=== PATIENT | male | born 1955 | race Caucasian/White ===

== ENCOUNTER 2020-12-31 22:32 | Emergency (ER) | payer MEDICARE, BC ==
--- NOTE | 2020-12-31 23:59 | EDM.PDOC ---
ED HPI GENERAL MEDICAL PROBLEM - General Chief Complaint: Back Pain or Injury Time Seen by Provider: 12/31/20 23:55 Source of Information: Reports: Patient History Limitations: Reports: No Limitations - History of Present Illness INITIAL COMMENTS - FREE TEXT/NARRATIVE: 65-year-old female who reports on 12/28/2020 he began to notice a sharp pain in his right was intermittent and mild initially and it seemed to be worse with movement and with palpation. He works as a tier truck driver on a farm and noted the pain when he would get in and out of the truck. And with certain bumps. Since 12/28/2020, the pain has progressively worsened with time. He has seen the chiropractor twice and seemed to get some relief with chiropractic manipulation it was short-lived. He states he had an adjustment and 8 AM today and the pain was improved until about noon and then the pain seems to have worsened through the day and the pain as a 10/10 level of pain now. Movement and with palpation. It seems to radiate up his back a little bit and to his right flank as well. He does have some nausea on the way in via private vehicle but no vomiting. He does report that he has had sweats associated with this pain and the pain does have a colicky component. In addition, he has had a subjective fever with chills at times. No abdominal pain. No weakness or dizziness. He reports he has been eating and drinking normally. There are no other associated signs or symptoms. There are no other modifying factors. Onset: Other (12/28/2020) Duration: Getting Worse Location: Reports: Back, Radiates to (Flank and right mid back) Quality: Reports: Sharp, Stabbing Improves with: Reports: Rest Worsens with: Reports: Other (Palpation), Movement Context: Reports: Other (As above) Associated Symptoms: Reports: No Other Symptoms (Except as above.) Treatments PLATE DRILLER: Reports: Acetaminophen, NSAIDS (Ibuprofen) Right Back Pain Score (Numeric/FACES): 10 - Related Data Allergies Allergy/AdvReac Type Severity Reaction Status Date / Time No Known Allergies Allergy Verified 12/31/20 22:51 Home Meds: Home Meds Aspirin [Halfprin] 81 mg PO DAILY 12/31/20 [History] Empagliflozin [Jardiance] 10 mg PO DAILY 12/31/20 [History] Exenatide Microspheres [Bydureon] 2 mg SUBCUT Q7D 12/31/20 [History] Acetaminophen/HYDROcodone [HYDROcodone-Acetaminophen 5-325 MG *] 1 - 2 tab PO Q6H PRN #12 each 01/01/21 [Rx] Sulfamethoxazole/Trimethoprim [Bactrim Ds Tablet] 1 tab PO BID 10 Days #20 tablet 01/01/21 [Rx] Past Medical History Endocrine/Metabolic History: Reports: Diabetes, Type II Dermatologic History: Reports: Venous Stasis Dermatitis - Infectious Disease History Infectious Disease History: Reports: Mumps - Past Surgical History HEENT Surgical History: Reports: Cataract Surgery (With bilateral implants) GI Surgical History: Reports: Appendectomy Social & Family History - Tobacco Use Tobacco Use Status *Q: Unknown Ever Used Tobacco (Nonsmoker) - Caffeine Use Caffeine Use: Reports: Coffee, Soda - Alcohol Use Alcohol Use History: No - Living Situation & Occupation Living situation: Reports: Occupation: Retired (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 Denies: Abdominal Pain, Vomiting : Reports: Flank Pain. Denies: Dysuria, Hematuria Musculoskeletal: Reports: Back Pain. Denies: Neck Pain, Shoulder Pain Skin: Denies: Diaphoresis, Rash Neurological: Denies: Dizziness, Headache Hematologic/Lymphatic: Denies: Easy Bleeding, Easy Bruising ED EXAM, GENERAL - Physical Exam Exam: See Below Exam Limited By: No Limitations General Appearance: Alert, Moderate Distress, Obese Eye Exam: Bilateral Eye: EOMI, Normal Inspection (Sclera are anicteric), PERRL Ears: Normal External Exam, Hearing Grossly Normal Ear Exam: Bilateral Ear: Auricle Normal Nose: Normal Inspection, Normal Mucosa, No Blood Throat/Mouth: Normal Voice, No Airway Compromise Head: Atraumatic, Normocephalic Neck: Normal Inspection, Supple, Non-Tender, Full Range of Motion Respiratory/Chest: No Respiratory Distress, Lungs Clear, Normal Breath Sounds, No Accessory Muscle Use, Chest Non-Tender Cardiovascular: Normal Peripheral Pulses, Regular Rate, Rhythm, No Murmur Peripheral Pulses: 2+: Radial (L), Radial (R) GI/Abdominal: Normal Bowel Sounds, Soft, Non-Tender, No Mass Back Exam: Normal Inspection, CVA Tenderness (R). No: CVA Tenderness (L) Extremities: Normal Inspection, Normal Range of Motion, Non-Tender, Normal Capillary Refill, Other (Support stockings on both feet, ankles and lower legs.) Neurological: Alert, Oriented, CN II-XII Intact, Normal Cognition, No Motor/Sensory Deficits Psychiatric: Normal Affect Skin Exam: Warm, Dry, Intact, Normal Color, No Rash Course - Vital Signs Last Recorded V/S: Last Vital Signs Temp 36.8 C 12/31/20 23:00 Pulse 75 01/01/21 02:59 Resp 18 01/01/21 02:59 BP 158/65 H 01/01/21 02:59 Pulse Ox 96 01/01/21 02:59 - Orders/Labs/Meds Orders: Active Orders 24 hr Category Date Time Status Abdomen Pelvis wo Cont [CT] Stat Exams 01/01/21 01:00 Taken CULTURE URINE [RM] Stat Lab 01/01/21 00:00 Received Sodium Chloride 0.9% [Saline Flush] Med 01/01/21 00:17 Active 10 ml FLUSH ASDIRECTED PRN Peripheral IV Insertion Adult [OM.PC] Routine Oth 01/01/21 00:17 Ordered Medication Orders Sodium Chloride (Sodium Chloride 0.9% 10 Ml Syringe) 10 ml FLUSH ASDIRECTED PRN PRN Reason: Keep Vein Open Last Admin: 01/01/21 00:32 Dose: 10 ml Documented by: KELLY Labs: Laboratory Tests 12/31/20 01/01/21 01/01/21 Range/Units 22:45 00:10 00:10 WBC 16.1 H (3.2-10.1) x10-3/uL RBC 4.93 (3.90-5.90) x10(6)uL Hgb 14.9 (12.9-17.7) g/dL Hct 46.0 (38.3-50.1) % MCV 93.3 (80.8-98.7) fL MCH 30.2 (27.0-33.3) pg MCHC 32.3 (28.7-35.3) g/dL RDW 14.6 (12.4-15.0) % Plt Count 214 (117-477) x10(3)uL MPV 8.3 (6.7-11.0) fL Add Manual Diff Yes Neutrophils % (Manual) 84 H (46-82) % Band Neutrophils % 2 (0-6) % Lymphocytes % (Manual) 5 L (13-37) % Monocytes % (Manual) 8 (4-12) % Basophils % (Manual) 1 (0-2) % Sodium 140 (135-145) mmol/L Potassium 3.8 (3.5-5.3) mmol/L Chloride 103 (100-110) mmol/L Carbon Dioxide 25 (21-32) mmol/L BUN 19 H (7-18) mg/dL Creatinine 1.1 (0.70-1.30) mg/dL Est Cr Clr Drug Dosing 69.13 mL/min Estimated GFR (MDRD) > 60 (>60) BUN/Creatinine Ratio 17.3 (9-20) Glucose 203 H (80-116) mg/dL Calcium 8.8 (8.6-10.2) mg/dL Magnesium 2.0 (1.8-2.5) mg/dL Total Bilirubin 0.8 (0.1-1.3) mg/dL AST 18 (5-25) IU/L ALT 27 (12-36) U/L Alkaline Phosphatase 75 (56-112) IU/L Total Protein 7.3 (6.0-8.0) g/dL Albumin 3.1 L (3.2-4.6) g/dL Globulin 4.2 g/dL Albumin/Globulin Ratio 0.7 Urine Color Yellow (YELLOW) Urine Appearance Cloudy (CLEAR) Urine pH 5.0 (5.0-6.5) Ur Specific Section 1.010 (1.010-1.025) Urine Protein Negative (NEGATIVE) mg/dL Urine Glucose (UA) >1000 H (NORMAL) mg/dL Urine Ketones 15 H (NEGATIVE) mg/dL Urine Occult Blood Moderate H (NEGATIVE) Urine Nitrite Negative (NEGATIVE) Urine Bilirubin Negative (NEGATIVE) Urine Urobilinogen Normal (NEGATIVE) mg/dL Ur Leukocyte Esterase Large H (NEGATIVE) Urine RBC 5-10 H (0-5) Urine WBC >100 H (0-5) Ur Squamous Epith Cells Few H (NS,R,O) Urine Bacteria Moderate H (NS) Meds: Medications Generic Name Dose Route Start Last Admin Trade Name Caprice PRN Reason Stop Dose Admin Sodium Chloride 10 ml 01/01/21 00:17 01/01/21 00:32 Sodium Chloride 0.9% 10 Ml Syringe FLUSH 10 ml ASDIRECTED PRN Administration Keep Vein Open Discontinued Medications Generic Name Dose Route Start Last Admin Trade Name Caprice PRN Reason Stop Dose Admin Ceftriaxone Sodium 2 gm 01/01/21 02:04 01/01/21 02:10 Ceftriaxone 2 Gm Vial IVPUSH 01/01/21 02:05 2 gm ONETIME ONE Administration Hydromorphone HCl 1 mg 01/01/21 00:18 01/01/21 00:36 Hydromorphone 2 Mg/Ml Sdv IVPUSH 01/01/21 00:19 1 mg ONETIME ONE Administration Sodium Chloride 1,000 mls @ 999 mls/hr 01/01/21 00:18 01/01/21 00:32 Normal Saline IV 01/01/21 01:18 999 mls/hr .BOLUS ONE Administration Ondansetron HCl 4 mg 01/01/21 00:18 01/01/21 00:36 Ondansetron 4 Mg/2 Ml Sdv IVPUSH 01/01/21 00:19 4 mg ONETIME ONE Administration - Radiology Interpretation Free Text/Narrative:: CT scan of the abdomen and pelvis showed no acute abnormality demonstrated. There is mild anterolisthesis at L4-5. There are multilevel lumbar degenerative changes noted. There is a left adrenal and [place]. There is a small fat-containing periumbilical hernia. This was per the [facility] radiologist. - Re-Assessments/Exams Free Text/Narrative Re-Assessment/Exam: 01/01/21 00:40: One plus oh count is 16.1. Hemoglobin is 14.9. Platelet count is normal. Sodium is 140. Potassium is 3.8. Bicarbonate was 25. BUN is 19 and creatinine is 1.1. LFTs are normal. Urinalysis has greater than 1000 glucose, 5- 10 red cells per high-power field and greater then 100 white cells per high power with bacteria present. The patient is receiving Dilaudid and Zofran IV for his pain/nausea. He is receiving normal saline 1 L as a bolus. I will send the patient for CT scan of his abdomen and pelvis without IV contrast for concern about a possible kidney stone. 01/01/21 03:20: The CT scan of the patient's abdomen and pelvis showed no acute abnormality in the abdomen or pelvis. I had already given the patient Rocephin 2 g IV earlier. This was for a urinary tract infection. This infection appears to be a kidney infection. He has remained hemodynamically stable. He is feeling much improved after the IV pain medication and IV fluids. His pain is down to a 2-3/10. [address] will [address] the patient on Bactrim DS and will give him a prescription of hydrocodone 5/325 that he can take for moderate to severe pain. The patient appears to be stable for discharge. I discussed all this with the patient and with his and they're comfortable to plan for discharge and actually are preferring discharge at this point. Departure - Departure Time of Disposition: 03:35 Disposition: Home, Self-Care 01 Condition: Good Clinical Impression: Pyelonephritis, Diabetes mellitus type 2 in obese Right low back pain Qualifiers: Chronicity: acute Sciatica presence: without sciatica Qualified Code(s): M54.50 - Low back pain, unspecified - Discharge Information Prescriptions: Sulfamethoxazole/Trimethoprim [Bactrim Ds Tablet] 1 tab PO BID 10 Days #20 tablet Acetaminophen/HYDROcodone [HYDROcodone-Acetaminophen 5-325 MG *] 1 - 2 tab PO Q6H PRN #12 each PRN Reason: Moderate to severe pain Instructions: Pyelonephritis, Adult, [id number], Pain Medicine Instructions, [id number] Referrals: PCP,None [Primary Care Provider] - Forms: ED Department Discharge Additional Instructions: Your blood tests did show an elevated white blood cell count which is in keeping with your kidney infection on the right side. Your kidney function was normal. Your blood glucose was 203. Your urine test did show evidence of a kidney infection. A CT scan of your abdomen and pelvis showed no evidence of a kidney stone and in fact, showed no acute abnormality per the radiologist. He did have some arthritis in her back and you had a benign cyst on your left adrenal gland. Your nothing that will require any acute intervention and you should just follow them up with your primary doctor. You do need to increase your fluid intake. And a dose of antibiotics tonight begin treatment of your urinary infection. I have sent a prescription electronically to your pharmacy for additional antibiotics you will need to take the next 10 days. I have given you a prescription of hydrocodone 5/325 that you can use as needed for severe pain. You can take ibuprofen as needed for the pain as well. Follow-up with your primary provider next week for recheck. Back to the emergency department for vomiting, severe weakness, high fever, worsening back or abdominal pain or any other concerning signs or symptoms. Sepsis Event Note (ED) - Evaluation Sepsis Screening Result: No Definite Risk - Focused Exam Vital Signs: Vital Signs Temp Pulse Resp BP Pulse Ox 01/01/21 02:59 75 18 158/65 H 96 12/31/20 23:00 36.8 C 70 18 145/75 H 98 - My Orders Last 24 Hours: My Active Orders 01/01/21 00:00 CULTURE URINE [RM] Stat 01/01/21 00:17 Sodium Chloride 0.9% [Saline Flush] 10 ml FLUSH ASDIRECTED PRN Peripheral IV Insertion Adult [OM.PC] Routine 01/01/21 01:00 Abdomen Pelvis wo Cont [CT] Stat - Assessment/Plan Last 24 Hours: My Active Orders 01/01/21 00:00 CULTURE URINE [RM] Stat 01/01/21 00:17 Sodium Chloride 0.9% [Saline Flush] 10 ml FLUSH ASDIRECTED PRN Peripheral IV Insertion Adult [OM.PC] Routine 01/01/21 01:00 Abdomen Pelvis wo Cont [CT] Stat
[2021-01-01] MEDS ORDERED: Sodium Chloride 0.9% 10 ML Syringe FLUSH PRN (00:17)
[2021-01-01] MEDS ORDERED: Sodium Chloride 0.9% 1,000 ML IV ONE (00:18)
[2021-01-01] MEDS ORDERED: Ondansetron 4 MG/2 ML SDV IVPUSH ONE (00:18)
[2021-01-01] MEDS ORDERED: HYDROmorphone 2 MG/ML SDV IVPUSH ONE (00:18)
[2021-01-01] MEDS ORDERED: cefTRIAXone 2 GM Vial IVPUSH ONE (02:04)
== END 2021-01-01 04:00 | disposition home or self-care (01) ==
LOC: FB.ED 22:32
DX: N12 Tubulo-interstitial nephritis, not specified as acute or chronic (principal); E11.9 Type 2 diabetes mellitus without complications; Z79.82 Long term (current) use of aspirin
CPT/HCPCS: 36415; 74176; 80053; 81001; 83735; 85025; 87086; 96374; 96375; 99284-25; J0696; J1170; J2405; J7030